=== PATIENT | female | born 1985 | race Caucasian/White ===

== ENCOUNTER 2016-09-02 04:44 | Emergency (ER) | payer SELFPAY ==
[~2016-09-02] VITALS: Ht 175.2 cm; Wt 81.6 kg
[~2016-09-02 04:44] MED LIST: BACTRIM DS 8001 TA1 PO; BACTRIM DS 8001 TAB PO; BENADRYL25 M2 PO; CIPROFLOXACIN500 MG PO; CLARITIN10 MG PO; CLINDAMYCIN HC300 MG PO; CYCLOBENZAPRINE10 MG PO; CYCLOBENZAPRINE5 MG PO; DOXYCYCLINE MO100 MG PO; FLEXERIL10 MG PO; HYDROCODONE BIT1 T11 PO; LIDEX0.05% T; MACROBID100 M1 PO; MACRODANTIN100 M1 PO; MEDROL DOSEPAK4 MG PO; MOTRIN800 MG PO; NORCO 325 MG-51 TAB PO; NORFLEX100 MG PO; OMEPRAZOLE40 MG PO; OVRAL-21 50 MCG1 TAB PO; PERCOCET 325 MG1 TA2 PO; PHENERGAN25 M3 PO; PREDNICOT20 MG PO; PYRIDIUM200 MG PO; TORADOL10 MG PO; TRAMADOL HCL50 MG PO; TYLENOL325 M2 PO; ULTRAM50 MG PO; VICODIN 5/500 505 MG PO; VICODIN 500 MG-1 TAB PO; VICODIN1 TAB PO; ZITHROMAX Z PA250 MG PO; ZOFRAN ODT4 MG SL; ZYRTEC10 MG PO; Zofran4 MG PO
[2016-09-02 04:49] VITALS: BP 145/80
[2016-09-02] MEDS ORDERED: NORCO 5-325 TA1 EACH PO (06:05)
== END 2016-09-02 06:16 | disposition home or self-care (01) ==
LOC: ED 04:44
DX: S52.121A Displaced fracture of head of right radius, initial encounter for closed fracture (principal); G43.909 Migraine, unspecified, not intractable, without status migrainosus; Z98.51 Tubal ligation status; Z98.890 Other specified postprocedural states; Z88.1 Allergy status to other antibiotic agents; Z88.0 Allergy status to penicillin; W19.XXXA Unspecified fall, initial encounter; Y93.89 Activity, other specified; Y92.009 Unspecified place in unspecified non-institutional (private) residence as the place of occurrence of the external cause; Y99.9 Unspecified external cause status

== ENCOUNTER 2016-10-17 14:50 | Emergency (ER) | payer MEDICAID ==
[~2016-10-17] VITALS: Ht 175.2 cm; Wt 81.6 kg
[~2016-10-17 14:50] MED LIST changes: +NORCO 5-325 TA1 EACH PO
[2016-10-17 15:10] VITALS: BP 151/80
[2016-10-17] MEDS ORDERED: CLINDAMYCIN HC300 MG PO (15:50)
== END 2016-10-17 15:55 | disposition home or self-care (01) ==
LOC: ED 14:50
DX: K08.89 Other specified disorders of teeth and supporting structures (principal); F17.200 Nicotine dependence, unspecified, uncomplicated; Z88.0 Allergy status to penicillin; Z88.1 Allergy status to other antibiotic agents; Z90.49 Acquired absence of other specified parts of digestive tract

== ENCOUNTER 2016-11-06 08:45 | Emergency (ER) | payer MEDICAID ==
[~2016-11-06] VITALS: Ht 172.7 cm; Wt 81.6 kg
[2016-11-06 08:53] VITALS: BP 140/92
== END 2016-11-06 10:19 | disposition home or self-care (01) ==
LOC: ED 08:45
DX: S93.692A Other sprain of left foot, initial encounter (principal); F17.200 Nicotine dependence, unspecified, uncomplicated; Z98.890 Other specified postprocedural states; G43.909 Migraine, unspecified, not intractable, without status migrainosus; Z98.51 Tubal ligation status; Z88.1 Allergy status to other antibiotic agents; Z88.0 Allergy status to penicillin; X58.XXXA Exposure to other specified factors, initial encounter; Y93.89 Activity, other specified; Y92.89 Other specified places as the place of occurrence of the external cause; Y99.9 Unspecified external cause status

== ENCOUNTER 2017-04-03 12:28 | Emergency (ER) | payer OTHER ==
[~2017-04-03] VITALS: Ht 175.2 cm; Wt 81.6 kg
[2017-04-03 12:38] VITALS: BP 136/85
== END 2017-04-03 14:38 | disposition home or self-care (01) ==
LOC: ED 12:28
DX: S16.1XXA Strain of muscle, fascia and tendon at neck level, initial encounter (principal); G43.909 Migraine, unspecified, not intractable, without status migrainosus; F17.200 Nicotine dependence, unspecified, uncomplicated; Z88.0 Allergy status to penicillin; Z88.1 Allergy status to other antibiotic agents; W00.0XXA Fall on same level due to ice and snow, initial encounter; Y93.89 Activity, other specified; Y92.89 Other specified places as the place of occurrence of the external cause; Y99.8 Other external cause status

== ENCOUNTER 2017-08-07 00:31 | Emergency (ER) | payer OTHER ==
[~2017-08-07] VITALS: Ht 175.2 cm; Wt 84.1 kg
[2017-08-07] MEDS ORDERED: MEDROL DOSEPAK4 MG PO (00:44)
[2017-08-07] MEDS ORDERED: SEPTDS PO (00:44)
[2017-08-07] MEDS ORDERED: ZYRTEC10 MG PO (00:44)
== END 2017-08-07 03:06 | disposition home or self-care (01) ==
LOC: ED 00:31
DX: S50.362A Insect bite (nonvenomous) of left elbow, initial encounter (principal); F10.129 Alcohol abuse with intoxication, unspecified; Z88.0 Allergy status to penicillin; Z88.1 Allergy status to other antibiotic agents; W57.XXXA Bitten or stung by nonvenomous insect and other nonvenomous arthropods, initial encounter; Y93.89 Activity, other specified; Y92.89 Other specified places as the place of occurrence of the external cause; Y99.8 Other external cause status

== ENCOUNTER 2017-10-18 19:24 | Emergency (ER) | payer OTHER ==
[~2017-10-18] VITALS: Ht 175.2 cm; Wt 85.3 kg
[~2017-10-18 19:24] MED LIST changes: +SEPTDS PO
[2017-10-18 19:29] VITALS: BP 136/77
== END 2017-10-18 20:39 | disposition home or self-care (01) ==
LOC: ED 19:24
DX: S50.01XA Contusion of right elbow, initial encounter (principal); Z98.51 Tubal ligation status; Z88.0 Allergy status to penicillin; Z88.1 Allergy status to other antibiotic agents; W22.8XXA Striking against or struck by other objects, initial encounter; Y93.89 Activity, other specified; Y92.69 Other specified industrial and construction area as the place of occurrence of the external cause; Y99.9 Unspecified external cause status

== ENCOUNTER 2018-02-13 23:03 | Emergency (ER) | payer OTHER ==
[~2018-02-13] VITALS: Ht 175.2 cm; Wt 76.2 kg
--- NOTE | ~2018-02-13 | EKG ---
[place], [place] ELECTROCARDIOGRAM REPORT NAME: MARYAM CROSS UNIT #: [id number] ROOM: DOCTOR: EPIPHANY DRAFT REPORT BIRTHDATE: [birth year] [facility] Test Date: 2018-02-13 Test Time: 23:25:42 Pat Name: MARYAM CROSS Department: Room: Gender: F [employer]: : 1985 Requested By: NATALIA PISANO DNP Order Number: [id number] Reading MD: Jairon Tran MD Measurements Intervals [place] Rate: 87 P: 40 MI: 173 QRS: 16 QRSD: 116 T: 24 QT: 360 QTc: 433 Interpretive Statements Sinus rhythm Nonspecific intraventricular conduction delay Electronically Signed On 02-15-2018 14:20:10 PST by Jairon Tran MD CM:EKGRPT:ELECTROCARDIOGRAM REPORT [id number] NATALIA PISANO [facility] NATALIA PISANO DNP
[2018-02-13 23:58] LABS: BASO # 0.1 10*3/uL (0.0-0.1); BASO % 0.8 % (0.0-1.0); EOS # 0.2 10*3/uL (0.0-0.4); EOS % 2.8 % (1.0-4.0); HEMATOCRIT 39.6 % (37.0-47.0); HEMOGLOBIN 13.2 g/dl (12.0-16.0); LYMPH # 3.5 10*3/uL (1.3-4.4); LYMPH % 48.3 % (27.0-41.0); MEAN CORPUSCULAR HGB 29.7 pg (27.0-31.0); MEAN CORPUSCULAR HGB CONC 33.3 g/dl (33.0-37.0); MEAN PLATELET VOLUME 11.3 fl (9.6-12.3); MONO # 0.5 10*3/uL (0.1-1.0); MONO % 7.5 % (3.0-9.0); NEUT # 2.9 10*3/uL (2.3-7.9); NEUT % 40.3 % (47.0-73.0); PLATELET COUNT AUTOMATED 236 10*3/uL (130-400); RED BLOOD COUNT 4.45 10*6/uL (4.10-5.10); RED CELL DISTRI WIDTH 12.7 % (0-14.5); WHITE BLOOD COUNT 7.2 10*3/uL (4.8-10.8)
[2018-02-14 00:08] LABS: ACT PARTIAL THROMBO TIME 23.1 SECONDS (20.8-31.5)
[2018-02-14 00:15] LABS: ALBUMIN 3.8 gm/dl (3.1-4.5); ALKALINE PHOSPHATASE 114 U/L (45-117); BUN 6 mg/dl (7-24); CHLORIDE 109 mmol/L (98-107); CREATININE 0.66 mg/dL (0.55-1.02); LIPASE 343 U/L (73-393); POTASSIUM 3.6 mmol/L (3.5-5.1); SGOT/AST 32 IU/L (3-35); SGPT/ALT 38 U/L (12-78); SODIUM 138 mmol/L (136-145); TOTAL PROTEIN 7.8 gm/dL (6.4-8.2)
[2018-02-14 00:20] LABS: TROPONIN I < 0.015 ng/ml (<0.045)
[2018-02-14] MEDS ORDERED: ONE DAILY WITH1 EACH PO (02:38)
[2018-02-14 02:57] VITALS: BP 148/90
== END 2018-02-14 03:02 | disposition home or self-care (01) ==
LOC: ED 23:03
PROVIDERS: Nurse Practitioner Family
DX: F10.129 Alcohol abuse with intoxication, unspecified (principal); R10.12 Left upper quadrant pain; R10.13 Epigastric pain; G43.909 Migraine, unspecified, not intractable, without status migrainosus; Z88.1 Allergy status to other antibiotic agents; Z88.0 Allergy status to penicillin; Z90.49 Acquired absence of other specified parts of digestive tract

== ENCOUNTER 2018-02-28 12:56 | Emergency (ER) | payer OTHER ==
[~2018-02-28] VITALS: Ht 175.2 cm; Wt 77.1 kg
[~2018-02-28 12:56] MED LIST changes: +ONE DAILY WITH1 EACH PO
[2018-02-28 12:57] VITALS: BP 122/71
[2018-02-28] MEDS ORDERED: POLYTRIM 1000010 M1 OPH (13:50)
[2018-02-28] MEDS ORDERED: NAPROSYN500 MG PO (13:51)
== END 2018-02-28 14:17 | disposition home or self-care (01) ==
LOC: ED 12:56
DX: S05.31XA Ocular laceration without prolapse or loss of intraocular tissue, right eye, initial encounter (principal); G43.909 Migraine, unspecified, not intractable, without status migrainosus; Z88.0 Allergy status to penicillin; Z88.1 Allergy status to other antibiotic agents; Z79.899 Other long term (current) drug therapy; W55.03XA Scratched by cat, initial encounter; Y93.89 Activity, other specified; Y92.89 Other specified places as the place of occurrence of the external cause; Y99.8 Other external cause status

== ENCOUNTER 2018-04-23 15:22 | Emergency (ER) | payer OTHER ==
[~2018-04-23] VITALS: Ht 175.2 cm; Wt 73.9 kg
[~2018-04-23 15:22] MED LIST changes: +NAPROSYN500 MG PO; +POLYTRIM 1000010 M1 OPH
[2018-04-23 16:51] LABS: BASO % 0.5 % (0.0-1.0); EOS # 0.1 10*3/uL (0.0-0.4); EOS % 1.5 % (1.0-4.0); HEMATOCRIT 41.7 % (37.0-47.0); HEMOGLOBIN 13.8 g/dl (12.0-16.0); LYMPH # 1.7 10*3/uL (1.3-4.4); LYMPH % 23.2 % (27.0-41.0); MEAN CELL VOLUME 91.9 fl (81.0-99.0); MEAN CORPUSCULAR HGB 30.4 pg (27.0-31.0); MEAN CORPUSCULAR HGB CONC 33.1 g/dl (33.0-37.0); MEAN PLATELET VOLUME 11.1 fl (9.6-12.3); MONO # 0.4 10*3/uL (0.1-1.0); MONO % 5.3 % (3.0-9.0); NEUT # 5.2 10*3/uL (2.3-7.9); NEUT % 69.2 % (47.0-73.0); PLATELET COUNT AUTOMATED 232 10*3/uL (130-400); RED BLOOD COUNT 4.54 10*6/uL (4.10-5.10); RED CELL DISTRI WIDTH 12.3 % (0-14.5); WHITE BLOOD COUNT 7.5 10*3/uL (4.8-10.8)
[2018-04-23 17:00] LABS: ACT PARTIAL THROMBO TIME 20.3 SECONDS (20.8-31.5)
[2018-04-23 17:05] LABS: ALBUMIN 3.6 gm/dl (3.1-4.5); ALKALINE PHOSPHATASE 90 U/L (45-117); BUN 8 mg/dl (7-24); CHLORIDE 114 mmol/L (98-107); CREATININE 0.75 mg/dL (0.55-1.02); POTASSIUM 4.3 mmol/L (3.5-5.1); SGOT/AST 28 IU/L (3-35); SGPT/ALT 34 U/L (12-78); SODIUM 146 mmol/L (136-145); TOTAL PROTEIN 7.2 gm/dL (6.4-8.2)
[2018-04-23 19:29] LABS: BILIRUBIN NEGATIVE (NEGATIVE); BLOOD NEGATIVE (NEGATIVE); CLARITY SL CLOUDY (CLEAR); COLOR YELLOW (YELLOW); GLUCOSE NEGATIVE (NEGATIVE); KETONE 1+ (NEGATIVE); LEUKO ESTERASE NEGATIVE (NEGATIVE); NITRITE NEGATIVE (NEGATIVE); SPECIFIC GRAVITY <= 1.005 (1.005-1.030); UROBILINOGEN 0.2 E.U./dl (0.2-1.0)
[2018-04-23 19:41] LABS: BACTERIA 2+; EPITHELIAL CELLS 25-30
[2018-04-23 20:01] VITALS: BP 115/64
[2018-09-19] MEDS ORDERED: MINIPRESS2 M1 PO (20:39)
== END 2018-04-23 20:30 | disposition home or self-care (01) ==
LOC: ED 15:22
PROVIDERS: Physician Assistant
DX: S13.9XXA Sprain of joints and ligaments of unspecified parts of neck, initial encounter (principal); R10.9 Unspecified abdominal pain; R55 Syncope and collapse; F17.200 Nicotine dependence, unspecified, uncomplicated; Z88.1 Allergy status to other antibiotic agents; Z88.0 Allergy status to penicillin; Z79.899 Other long term (current) drug therapy; V89.2XXA Person injured in unspecified motor-vehicle accident, traffic, initial encounter; Y93.I9 Activity, other involving external motion; Y92.488 Other paved roadways as the place of occurrence of the external cause; Y99.8 Other external cause status

== ENCOUNTER 2018-07-14 12:42 | Emergency (ER) | payer OTHER ==
[~2018-07-14] VITALS: Ht 175.2 cm; Wt 77.1 kg
[2018-07-14 12:43] VITALS: BP 115/70
[2018-07-14] MEDS ORDERED: MEDROL DOSEPAK4 MG PO (14:55)
[2018-07-14] MEDS ORDERED: ROBAXIN500 M1 PO (14:55)
[2018-09-19] MEDS ORDERED: MINIPRESS2 M1 PO (20:39)
== END 2018-07-14 14:58 | disposition home or self-care (01) ==
LOC: ED 12:42
DX: S70.01XA Contusion of right hip, initial encounter (principal); Z88.1 Allergy status to other antibiotic agents; Z88.0 Allergy status to penicillin; Z79.899 Other long term (current) drug therapy; X50.0XXA Overexertion from strenuous movement or load, initial encounter; Y93.89 Activity, other specified; Y92.098 Other place in other non-institutional residence as the place of occurrence of the external cause; Y99.8 Other external cause status

== ENCOUNTER → 2018-08-05 | Outpatient (CLI) | payer OTHER ==
[~2018-08-05] MED LIST changes: +MINIPRESS2 M1 PO; +Motrin,Rufen800 MG PO; +ROBAXIN500 M1 PO
== END | disposition home or self-care (01) ==
LOC: US 09:45
DX: N92.0 Excessive and frequent menstruation with regular cycle (principal); N64.52 Nipple discharge

== ENCOUNTER 2018-08-12 08:27 | Emergency (ER) | payer OTHER ==
[~2018-08-12] VITALS: Ht 175.2 cm; Wt 77.1 kg
[~2018-08-12 08:27] MED LIST changes: -MINIPRESS2 M1 PO; -Motrin,Rufen800 MG PO
[2018-08-12 08:31] VITALS: BP 100/65
[2018-08-12] MEDS ORDERED: Motrin,Rufen800 MG PO (09:57)
[2018-09-19] MEDS ORDERED: MINIPRESS2 M1 PO (20:39)
== END 2018-08-12 10:10 | disposition home or self-care (01) ==
LOC: ED 08:27
DX: S39.012A Strain of muscle, fascia and tendon of lower back, initial encounter (principal); G43.909 Migraine, unspecified, not intractable, without status migrainosus; Z88.0 Allergy status to penicillin; Z88.1 Allergy status to other antibiotic agents; W17.2XXA Fall into hole, initial encounter; Y93.89 Activity, other specified; Y92.89 Other specified places as the place of occurrence of the external cause; Y99.8 Other external cause status

== ENCOUNTER 2018-11-24 07:51 | Emergency (ER) | payer OTHER ==
[~2018-11-24] VITALS: Ht 170.1 cm; Wt 77.1 kg
[~2018-11-24 07:51] MED LIST changes: +MINIPRESS2 M1 PO; +Motrin,Rufen800 MG PO
[2018-11-24 07:53] VITALS: BP 111/62
[2018-11-24] MEDS ORDERED: CYCLOBENZAPRINE10 MG PO (09:44)
[2018-11-24] MEDS ORDERED: Motrin,Rufen800 MG PO (09:44)
== END 2018-11-24 10:06 | disposition home or self-care (01) ==
LOC: ED 07:51
DX: S79.911A Unspecified injury of right hip, initial encounter (principal); S89.91XA Unspecified injury of right lower leg, initial encounter; J02.9 Acute pharyngitis, unspecified; F17.200 Nicotine dependence, unspecified, uncomplicated; Z88.1 Allergy status to other antibiotic agents; Z88.0 Allergy status to penicillin; Z90.49 Acquired absence of other specified parts of digestive tract; W18.09XA Striking against other object with subsequent fall, initial encounter; Y93.89 Activity, other specified; Y92.098 Other place in other non-institutional residence as the place of occurrence of the external cause; Y99.8 Other external cause status

== ENCOUNTER 2018-12-09 15:50 | Emergency (ER) | payer OTHER ==
[~2018-12-09] VITALS: Ht 175.2 cm; Wt 76.2 kg
[2018-12-09 15:51] VITALS: BP 122/73
[2018-12-09] MEDS ORDERED: SEPTDS PO (17:03)
[2018-12-09] MEDS ORDERED: CEPHALEXIN500 M1 PO (17:03)
== END 2018-12-09 17:59 | disposition home or self-care (01) ==
LOC: ED 15:50
DX: L03.116 Cellulitis of left lower limb (principal); F17.200 Nicotine dependence, unspecified, uncomplicated; Z88.0 Allergy status to penicillin; Z88.1 Allergy status to other antibiotic agents; W22.8XXA Striking against or struck by other objects, initial encounter; Y93.89 Activity, other specified; Y92.89 Other specified places as the place of occurrence of the external cause; Y99.0 Civilian activity done for income or pay

== ENCOUNTER 2018-12-13 16:54 | Emergency (ER) | payer OTHER ==
[~2018-12-13] VITALS: Ht 175.2 cm; Wt 76.2 kg
[~2018-12-13 16:54] MED LIST changes: +CEPHALEXIN500 M1 PO
[2018-12-13 16:56] VITALS: BP 136/76
[2018-12-13] MEDS ORDERED: Bactroban Oint22 GM T (17:27)
== END 2018-12-13 18:10 | disposition home or self-care (01) ==
LOC: ED 16:54
DX: M79.605 Pain in left leg (principal); Z98.51 Tubal ligation status; Z98.890 Other specified postprocedural states; Z79.899 Other long term (current) drug therapy; Z88.1 Allergy status to other antibiotic agents; Z88.0 Allergy status to penicillin

== ENCOUNTER 2019-03-09 14:51 | Emergency (ER) | payer OTHER ==
[~2019-03-09] VITALS: Ht 175.2 cm; Wt 78.0 kg
[~2019-03-09 14:51] MED LIST changes: +Bactroban Oint22 GM T
[2019-03-09 14:53] VITALS: BP 129/79
[2019-03-09] MEDS ORDERED: IBU600 M1 PO (15:25)
== END 2019-03-09 15:35 | disposition home or self-care (01) ==
LOC: ED 14:51
DX: S76.312A Strain of muscle, fascia and tendon of the posterior muscle group at thigh level, left thigh, initial encounter (principal); Z88.1 Allergy status to other antibiotic agents; Z88.0 Allergy status to penicillin; Z79.2 Long term (current) use of antibiotics; Z90.49 Acquired absence of other specified parts of digestive tract; X50.0XXA Overexertion from strenuous movement or load, initial encounter; Y93.89 Activity, other specified; Y92.89 Other specified places as the place of occurrence of the external cause; Y99.8 Other external cause status

== ENCOUNTER 2019-04-08 09:20 | Emergency (ER) | payer OTHER ==
[~2019-04-08] VITALS: Ht 175.2 cm; Wt 77.1 kg
[~2019-04-08 09:20] MED LIST changes: +IBU600 M1 PO
[2019-04-08 09:26] VITALS: BP 126/84
[2019-04-08] MEDS ORDERED: IBU800 MG PO (11:16)
== END 2019-04-08 11:19 | disposition home or self-care (01) ==
LOC: ED 09:20
DX: S30.0XXA Contusion of lower back and pelvis, initial encounter (principal); F17.200 Nicotine dependence, unspecified, uncomplicated; Z88.0 Allergy status to penicillin; Z88.1 Allergy status to other antibiotic agents; W10.8XXA Fall (on) (from) other stairs and steps, initial encounter; Y93.89 Activity, other specified; Y92.89 Other specified places as the place of occurrence of the external cause; Y99.8 Other external cause status

== ENCOUNTER 2019-05-03 14:37 | Emergency (ER) | payer SELFPAY ==
[~2019-05-03] VITALS: Ht 175.2 cm; Wt 77.1 kg
[~2019-05-03 14:37] MED LIST changes: +IBU800 MG PO
[2019-05-03 14:41] VITALS: BP 126/79
[2019-05-03] MEDS ORDERED: Motrin,Rufen800 MG PO (18:05)
== END 2019-05-03 18:06 | disposition home or self-care (01) ==
LOC: ED 14:37
DX: S86.911A Strain of unspecified muscle(s) and tendon(s) at lower leg level, right leg, initial encounter (principal); M25.521 Pain in right elbow; Z88.0 Allergy status to penicillin; Z88.8 Allergy status to other drugs, medicaments and biological substances; W19.XXXA Unspecified fall, initial encounter; Y93.72 Activity, wrestling; Y92.89 Other specified places as the place of occurrence of the external cause; Y99.8 Other external cause status

== ENCOUNTER 2019-05-25 08:30 | Emergency (ER) | payer OTHER ==
[~2019-05-25] VITALS: Ht 175.2 cm; Wt 77.1 kg
[2019-05-25] MEDS ORDERED: TYLENOL325 M1 PO (10:18)
[2019-05-25] MEDS ORDERED: Motrin,Rufen400 MG PO (10:18)
[2019-05-25 10:25] VITALS: BP 122/77
== END 2019-05-25 10:30 | disposition home or self-care (01) ==
LOC: ED 08:30
DX: S39.92XA Unspecified injury of lower back, initial encounter (principal); M25.551 Pain in right hip; M79.604 Pain in right leg; G43.909 Migraine, unspecified, not intractable, without status migrainosus; Z88.0 Allergy status to penicillin; Z88.1 Allergy status to other antibiotic agents; W10.8XXA Fall (on) (from) other stairs and steps, initial encounter; Y93.89 Activity, other specified; Y92.89 Other specified places as the place of occurrence of the external cause; Y99.8 Other external cause status

== ENCOUNTER 2019-09-07 13:54 | Emergency (ER) | payer OTHER ==
[~2019-09-07] VITALS: Ht 175.2 cm; Wt 77.1 kg
[~2019-09-07 13:54] MED LIST changes: +Motrin,Rufen400 MG PO; +TYLENOL325 M1 PO
[2019-09-07 14:02] VITALS: BP 138/86
== END 2019-09-07 16:18 | disposition home or self-care (01) ==
LOC: ED 13:54
DX: S92.534A Nondisplaced fracture of distal phalanx of right lesser toe(s), initial encounter for closed fracture (principal); Z88.1 Allergy status to other antibiotic agents; Z88.0 Allergy status to penicillin; W22.8XXA Striking against or struck by other objects, initial encounter; Y93.89 Activity, other specified; Y92.89 Other specified places as the place of occurrence of the external cause; Y99.8 Other external cause status

== ENCOUNTER 2019-09-16 12:26 | Emergency (ER) | payer OTHER ==
[~2019-09-16] VITALS: Ht 175.2 cm; Wt 77.1 kg
[2019-09-16 12:50] VITALS: BP 128/89
[2019-09-16] MEDS ORDERED: Motrin,Rufen800 MG PO (14:24)
== END 2019-09-16 14:41 | disposition home or self-care (01) ==
LOC: ED 12:26
DX: S39.012A Strain of muscle, fascia and tendon of lower back, initial encounter (principal); Z88.8 Allergy status to other drugs, medicaments and biological substances; Z88.0 Allergy status to penicillin; X50.0XXA Overexertion from strenuous movement or load, initial encounter; Y93.89 Activity, other specified; Y92.89 Other specified places as the place of occurrence of the external cause; Y99.8 Other external cause status

== ENCOUNTER 2019-11-04 10:38 | Emergency (ER) | payer OTHER ==
[~2019-11-04] VITALS: Ht 175.2 cm; Wt 77.1 kg
[2019-11-04 11:41] VITALS: BP 112/70
[2019-11-04] MEDS ORDERED: IBUPROFEN600 MG PO (13:49)
== END 2019-11-04 14:52 | disposition home or self-care (01) ==
LOC: ED 10:38
DX: S76.012A Strain of muscle, fascia and tendon of left hip, initial encounter (principal); Z88.1 Allergy status to other antibiotic agents; Z88.0 Allergy status to penicillin; X50.0XXA Overexertion from strenuous movement or load, initial encounter; Y93.89 Activity, other specified; Y92.89 Other specified places as the place of occurrence of the external cause; Y99.0 Civilian activity done for income or pay

== ENCOUNTER 2019-11-09 10:48 | Emergency (ER) | payer OTHER ==
[~2019-11-09] VITALS: Ht 175.3 cm; Wt 77.1 kg
[~2019-11-09 10:48] MED LIST changes: +IBUPROFEN600 MG PO
[2019-11-09 10:59] VITALS: BP 123/79
== END 2019-11-09 12:58 | disposition home or self-care (01) ==
LOC: ED 10:48
DX: M79.672 Pain in left foot (principal); F17.200 Nicotine dependence, unspecified, uncomplicated; Z88.0 Allergy status to penicillin; Z88.8 Allergy status to other drugs, medicaments and biological substances

== ENCOUNTER 2019-11-21 13:00 | Emergency (ER) | payer OTHER ==
[~2019-11-21] VITALS: Ht 175.2 cm; Wt 77.1 kg
[2019-11-21 13:06] VITALS: BP 128/85
[2019-11-21] MEDS ORDERED: IBUPROFEN600 MG PO (14:27)
== END 2019-11-21 14:28 | disposition home or self-care (01) ==
LOC: ED 13:00
DX: S46.911A Strain of unspecified muscle, fascia and tendon at shoulder and upper arm level, right arm, initial encounter (principal); Z88.0 Allergy status to penicillin; Z88.1 Allergy status to other antibiotic agents; W22.8XXA Striking against or struck by other objects, initial encounter; Y93.72 Activity, wrestling; Y92.89 Other specified places as the place of occurrence of the external cause; Y99.8 Other external cause status

== ENCOUNTER 2019-12-29 12:19 | Emergency (ER) | payer OTHER ==
[~2019-12-29] VITALS: Ht 175.2 cm; Wt 72.6 kg
[2019-12-29 12:40] VITALS: BP 122/71
== END 2019-12-29 14:31 | disposition home or self-care (01) ==
LOC: ED 12:19
DX: S60.011A Contusion of right thumb without damage to nail, initial encounter (principal); Z88.8 Allergy status to other drugs, medicaments and biological substances; Z88.0 Allergy status to penicillin; Z79.899 Other long term (current) drug therapy; X58.XXXA Exposure to other specified factors, initial encounter; Y93.89 Activity, other specified; Y92.89 Other specified places as the place of occurrence of the external cause; Y99.8 Other external cause status

== ENCOUNTER → 2020-02-28 | Outpatient (CLI) | payer OTHER | END | disposition home or self-care (01) | LOC: COVID19 12:32 | PROVIDERS: ATTEND Family Medicine | DX: Z20.828 Contact with and (suspected) exposure to other viral communicable diseases (principal) ==

== ENCOUNTER 2020-03-29 09:36 | Emergency (ER) | payer OTHER ==
[~2020-03-29] VITALS: Ht 175.2 cm; Wt 77.1 kg
[2020-03-29 09:41] VITALS: BP 123/48
[2020-03-29] MEDS ORDERED: TYLENOL325 M1 PO (10:35)
[2020-03-29] MEDS ORDERED: Motrin,Rufen400 MG PO (10:35)
== END 2020-03-29 10:37 | disposition home or self-care (01) ==
LOC: ED 09:36
DX: S46.911A Strain of unspecified muscle, fascia and tendon at shoulder and upper arm level, right arm, initial encounter (principal); G43.909 Migraine, unspecified, not intractable, without status migrainosus; Z88.1 Allergy status to other antibiotic agents; Z88.0 Allergy status to penicillin; X50.1XXA Overexertion from prolonged static or awkward postures, initial encounter; Y93.89 Activity, other specified; Y92.89 Other specified places as the place of occurrence of the external cause; Y99.8 Other external cause status

== ENCOUNTER → 2020-03-30 | Outpatient (CLI) | payer OTHER | END | disposition home or self-care (01) | LOC: COVID19 12:38 | PROVIDERS: ATTEND Family Medicine | DX: Z20.822 Contact with and (suspected) exposure to COVID-19 (principal) ==

== ENCOUNTER → 2020-05-21 | Outpatient (CLI) | payer OTHER ==
[~2020-05-21] MED LIST changes: +PREDNISONE20 M1 PO; +ROBAXIN-750750 MG PO
== END | disposition home or self-care (01) ==
LOC: COVID19 10:58
PROVIDERS: ATTEND Physical Therapist
DX: Z20.822 Contact with and (suspected) exposure to COVID-19 (principal)

== ENCOUNTER 2020-05-30 13:03 | Emergency (ER) | payer OTHER ==
[~2020-05-30] VITALS: Wt 79.4 kg
[~2020-05-30 13:03] MED LIST changes: -PREDNISONE20 M1 PO; -ROBAXIN-750750 MG PO
[2020-05-30 13:10] VITALS: BP 145/79
== END 2020-05-30 13:45 | disposition home or self-care (01) ==
LOC: ED 13:03
DX: S60.551A Superficial foreign body of right hand, initial encounter (principal); G43.909 Migraine, unspecified, not intractable, without status migrainosus; Z88.0 Allergy status to penicillin; Z79.899 Other long term (current) drug therapy; Z98.51 Tubal ligation status; Z90.49 Acquired absence of other specified parts of digestive tract; Z88.1 Allergy status to other antibiotic agents; W22.8XXA Striking against or struck by other objects, initial encounter; Y93.89 Activity, other specified; Y92.89 Other specified places as the place of occurrence of the external cause; Y99.9 Unspecified external cause status

== ENCOUNTER → 2020-05-31 | Outpatient (CLI) | payer OTHER ==
[~2020-05-31] MED LIST changes: +PREDNISONE20 M1 PO; +ROBAXIN-750750 MG PO
== END | disposition home or self-care (01) ==
LOC: CARD 05-23 08:30
PROVIDERS: ATTEND Physical Therapist
DX: I49.9 Cardiac arrhythmia, unspecified (principal); Z87.898 Personal history of other specified conditions; Z79.899 Other long term (current) drug therapy

== ENCOUNTER 2020-06-25 11:23 | Emergency (ER) | payer OTHER ==
[~2020-06-25] VITALS: Wt 79.4 kg
[~2020-06-25 11:23] MED LIST changes: -PREDNISONE20 M1 PO; -ROBAXIN-750750 MG PO
[2020-06-25 11:31] VITALS: BP 149/85
[2020-06-25] MEDS ORDERED: ROBAXIN-750750 MG PO (12:14)
[2020-06-25] MEDS ORDERED: PREDNISONE20 M1 PO (12:14)
== END 2020-06-25 12:29 | disposition home or self-care (01) ==
LOC: ED 11:23
DX: M62.830 Muscle spasm of back (principal); M54.5 Low back pain; Z88.0 Allergy status to penicillin; Z88.1 Allergy status to other antibiotic agents; Z79.899 Other long term (current) drug therapy; Z98.51 Tubal ligation status; Z90.49 Acquired absence of other specified parts of digestive tract

== ENCOUNTER 2021-02-26 07:29 | Emergency (ER) | payer OTHER ==
[~2021-02-26] VITALS: Wt 77.1 kg
[~2021-02-26 07:29] MED LIST changes: +PREDNISONE20 M1 PO; +ROBAXIN-750750 MG PO
[2021-02-26 07:49] VITALS: BP 126/77
[2021-02-26] MEDS ORDERED: CYCLOBENZAPRINE5 M3 PO (09:04)
== END 2021-02-26 09:33 | disposition home or self-care (01) ==
LOC: ED 07:29
DX: M54.50 Low back pain, unspecified (principal); Z88.1 Allergy status to other antibiotic agents; Z88.0 Allergy status to penicillin; F17.200 Nicotine dependence, unspecified, uncomplicated

== ENCOUNTER 2021-04-14 13:58 | Emergency (ER) | payer OTHER ==
[~2021-04-14] VITALS: Ht 175.2 cm; Wt 87.5 kg
[~2021-04-14 13:58] MED LIST changes: +CYCLOBENZAPRINE5 M3 PO
[2021-04-14 14:18] VITALS: BP 133/72
[2021-04-14] MEDS ORDERED: Motrin,Rufen800 MG PO (16:11)
== END 2021-04-14 16:42 | disposition home or self-care (01) ==
LOC: ED 13:58
DX: S22.31XA Fracture of one rib, right side, initial encounter for closed fracture (principal); Z88.0 Allergy status to penicillin; Z88.1 Allergy status to other antibiotic agents; Z98.51 Tubal ligation status; Z98.890 Other specified postprocedural states; W00.0XXA Fall on same level due to ice and snow, initial encounter; Y93.89 Activity, other specified; Y92.89 Other specified places as the place of occurrence of the external cause; Y99.8 Other external cause status

== ENCOUNTER → 2021-10-18 | Outpatient (CLI) | payer OTHER ==
[~2021-10-18] MED LIST changes: +OMEPRAZOLE20 M3 PO
[2021-10-18 11:27] LABS: BILIRUBIN Negative (Negative); BLOOD Negative (Negative); CLARITY Clear (Clear); COLOR Yellow (Yellow); GLUCOSE Negative (Negative); KETONE Negative (Negative); LEUKO ESTERASE Negative (Negative); NITRITE Negative (Negative); PH 5.5 (4.5-8.0); SPECIFIC GRAVITY 1.015 (1.001-1.030); UROBILINOGEN 0.2 E.U./dl (0.0-1.0)
[2021-10-18 13:32] LABS: RBC 0-2 rbc/hpf (0-2)
== END | disposition home or self-care (01) ==
LOC: LAB 11:00
PROVIDERS: ATTEND Family Medicine
DX: R35.0 Frequency of micturition (principal)

== ENCOUNTER 2021-10-22 13:41 | Emergency (ER) | payer OTHER ==
[~2021-10-22] VITALS: Ht 175.2 cm; Wt 77.1 kg
[~2021-10-22 13:41] MED LIST changes: -OMEPRAZOLE20 M3 PO
[2021-10-22 13:47] VITALS: BP 148/102
[2021-10-22] MEDS ORDERED: OMEPRAZOLE20 M3 PO (13:48)
== END 2021-10-22 17:21 | disposition home or self-care (01) ==
LOC: ED 13:41
DX: M25.552 Pain in left hip (principal); Z88.0 Allergy status to penicillin; Z88.1 Allergy status to other antibiotic agents; Z79.899 Other long term (current) drug therapy; Z98.51 Tubal ligation status; Z90.49 Acquired absence of other specified parts of digestive tract

== ENCOUNTER 2022-01-21 06:33 | Emergency (ER) | payer OTHER ==
[~2022-01-21] VITALS: Ht 175.2 cm; Wt 81.6 kg
[~2022-01-21 06:33] MED LIST changes: +OMEPRAZOLE20 M3 PO
[2022-01-21 06:39] VITALS: BP 127/74
[2022-01-21] MEDS ORDERED: Motrin,Rufen400 MG PO (07:13)
[2022-01-21] MEDS ORDERED: VOLTAREN ARTHRI20 GM T (07:13)
[2022-01-21] MEDS ORDERED: TYLENOL325 M1 PO (07:13)
== END 2022-01-21 07:20 | disposition home or self-care (01) ==
LOC: ED 06:33
DX: S50.02XA Contusion of left elbow, initial encounter (principal); Z88.0 Allergy status to penicillin; Z88.1 Allergy status to other antibiotic agents; Z79.899 Other long term (current) drug therapy; Z98.51 Tubal ligation status; Z90.49 Acquired absence of other specified parts of digestive tract; W22.03XA Walked into furniture, initial encounter; Y93.89 Activity, other specified; Y92.89 Other specified places as the place of occurrence of the external cause; Y99.8 Other external cause status

== ENCOUNTER → 2022-04-04 | Outpatient (CLI) | payer OTHER ==
[~2022-04-04] MED LIST changes: +VOLTAREN ARTHRI20 GM T
[2022-04-04 10:13] LABS: BASO # 0.1 10*3/uL (0.0-0.1); BASO % 1.4 % (0.0-1.0); EOS # 0.2 10*3/uL (0.0-0.4); EOS % 2.9 % (1.0-4.0); HEMATOCRIT 34.1 % (37.0-47.0); LYMPH # 2.1 10*3/uL (1.3-4.4); LYMPH % 33.3 % (27.0-41.0); MEAN CELL VOLUME 74.8 fl (81.0-99.0); MEAN CORPUSCULAR HGB 21.5 pg (27.0-31.0); MEAN CORPUSCULAR HGB CONC 28.7 g/dl (33.0-37.0); MEAN PLATELET VOLUME 10.5 fl (9.6-12.3); MONO # 0.5 10*3/uL (0.1-1.0); MONO % 7.7 % (3.0-9.0); NEUT # 3.4 10*3/uL (2.3-7.9); NEUT % 54.4 % (47.0-73.0); PLATELET COUNT AUTOMATED 307 10*3/uL (130-400); RED BLOOD COUNT 4.56 10*6/uL (4.10-5.10); RED CELL DISTRI WIDTH 17.2 % (0-14.5); WHITE BLOOD COUNT 6.3 10*3/uL (4.8-10.8)
[2022-04-04 10:30] LABS: ALKALINE PHOSPHATASE 108 U/L (46-116); BUN 10 mg/dl (9-23); CHLORIDE 107 mmol/L (98-107); SGPT/ALT 21 U/L (10-49); THYROID STIM HORMONE (HS) 3.769 uIU/ml (0.550-4.780); TOTAL PROTEIN 7.5 gm/dL (6.0-8.0)
[2022-04-05 05:06] LABS: H PYLORI IGG AB 0.16 (0.00-0.79)
[2022-04-07 13:06] LABS: H.PYLORI AB IGM 11.8 units (0.0-8.9); H.PYLORI IgA 11.8 units (0.0-8.9)
== END | disposition home or self-care (01) ==
LOC: LAB 09:45
PROVIDERS: ATTEND Student in an Organized Health Care Education/Training Program
DX: K59.00 Constipation, unspecified (principal); R25.2 Cramp and spasm

== ENCOUNTER → 2022-04-14 | Outpatient (CLI) | payer OTHER | END | disposition home or self-care (01) | LOC: LAB 14:01 | PROVIDERS: ATTEND Student in an Organized Health Care Education/Training Program | DX: D64.9 Anemia, unspecified (principal) ==

== ENCOUNTER → 2022-04-15 | Outpatient (CLI) | payer OTHER | END | disposition home or self-care (01) | LOC: LAB 11:46 | PROVIDERS: ATTEND Student in an Organized Health Care Education/Training Program | DX: D64.9 Anemia, unspecified (principal) ==

== ENCOUNTER → 2022-04-16 | Outpatient (CLI) | payer OTHER | END | disposition home or self-care (01) | LOC: MRI 01:29 | PROVIDERS: ATTEND Family Medicine | DX: R20.2 Paresthesia of skin (principal); H54.7 Unspecified visual loss; R51.9 Headache, unspecified ==

== ENCOUNTER 2022-07-24 12:54 | Emergency (ER) | payer OTHER ==
[~2022-07-24] VITALS: Ht 175.2 cm; Wt 81.6 kg
[2022-07-24 13:02] VITALS: BP 145/84
[2022-07-24 13:43] LABS: BASO # 0.1 10*3/uL (0.0-0.1); BASO % 0.9 % (0.0-1.0); EOS # 0.1 10*3/uL (0.0-0.4); EOS % 1.7 % (1.0-4.0); HEMATOCRIT 40.4 % (37.0-47.0); LYMPH # 2.7 10*3/uL (1.3-4.4); LYMPH % 41.6 % (27.0-41.0); MEAN CELL VOLUME 93.1 fl (81.0-99.0); MEAN CORPUSCULAR HGB 29.7 pg (27.0-31.0); MEAN CORPUSCULAR HGB CONC 31.9 g/dl (33.0-37.0); MEAN PLATELET VOLUME 10.5 fl (9.6-12.3); MONO # 0.6 10*3/uL (0.1-1.0); MONO % 8.9 % (3.0-9.0); NEUT % 46.6 % (47.0-73.0); PLATELET COUNT AUTOMATED 266 10*3/uL (130-400); RED BLOOD COUNT 4.34 10*6/uL (4.10-5.10); RED CELL DISTRI WIDTH 13.8 % (0-14.5); WHITE BLOOD COUNT 6.5 10*3/uL (4.8-10.8)
[2022-07-24 13:54] LABS: BILIRUBIN Negative (Negative); BLOOD 1+ (Negative); CLARITY Clear (Clear); COLOR Yellow (Yellow); GLUCOSE Negative (Negative); KETONE Trace (Negative); LEUKO ESTERASE Negative (Negative); NITRITE Negative (Negative); PH 5.5 (4.5-8.0); UROBILINOGEN 0.2 E.U./dl (0.0-1.0)
[2022-07-24 14:03] LABS: ALKALINE PHOSPHATASE 97 U/L (46-116); BUN 10 mg/dl (9-23); CHLORIDE 106 mmol/L (98-107); POTASSIUM 4.1 mmol/L (3.4-5.1); SGPT/ALT 27 U/L (10-49); THYROID STIM HORMONE (HS) 5.264 uIU/ml (0.550-4.780); TOTAL PROTEIN 7.1 gm/dL (6.0-8.0)
[2022-07-24 14:11] LABS: EPITHELIAL CELLS 0-2; MUCOUS 1+
[2022-07-24 14:12] LABS: BACTERIA TRACE; RBC 0-2 rbc/hpf (0-2)
== END 2022-07-24 14:54 | disposition home or self-care (01) ==
LOC: ED 12:54
PROVIDERS: Student in an Organized Health Care Education/Training Program
DX: N93.9 Abnormal uterine and vaginal bleeding, unspecified (principal); Z98.51 Tubal ligation status; Z90.49 Acquired absence of other specified parts of digestive tract; Z98.890 Other specified postprocedural states; Z79.899 Other long term (current) drug therapy; Z88.0 Allergy status to penicillin; Z88.1 Allergy status to other antibiotic agents

== ENCOUNTER 2022-07-30 14:15 | Emergency (ER) | payer OTHER ==
[~2022-07-30] VITALS: Ht 175.2 cm; Wt 81.6 kg
[2022-07-30 14:41] VITALS: BP 147/92
[2022-07-30 15:17] LABS: BILIRUBIN Negative (Negative); BLOOD 1+ (Negative); CLARITY Cloudy (Clear); COLOR Yellow (Yellow); GLUCOSE Negative (Negative); KETONE Negative (Negative); LEUKO ESTERASE 1+ (Negative); NITRITE Negative (Negative); UROBILINOGEN 0.2 E.U./dl (0.0-1.0)
[2022-07-30 15:22] LABS: BASO % 0.6 % (0.0-1.0); EOS % 0.6 % (1.0-4.0); HEMATOCRIT 41.5 % (37.0-47.0); LYMPH % 14.4 % (27.0-41.0); MEAN CELL VOLUME 92.6 fl (81.0-99.0); MEAN CORPUSCULAR HGB CONC 33.5 g/dl (33.0-37.0); MEAN PLATELET VOLUME 10.3 fl (9.6-12.3); MONO # 0.5 10*3/uL (0.1-1.0); MONO % 7.4 % (3.0-9.0); NEUT # 5.5 10*3/uL (2.3-7.9); NEUT % 76.7 % (47.0-73.0); PLATELET COUNT AUTOMATED 212 10*3/uL (130-400); RED BLOOD COUNT 4.48 10*6/uL (4.10-5.10); RED CELL DISTRI WIDTH 13.1 % (0-14.5); WHITE BLOOD COUNT 7.2 10*3/uL (4.8-10.8)
[2022-07-30] MEDS ORDERED: FEROSUL325 M1 PO (15:35)
[2022-07-30] MEDS ORDERED: OMEPRAZOLE MAGN20 MG PO (15:35)
[2022-07-30 15:37] LABS: BACTERIA 1+; EPITHELIAL CELLS 16-20
[2022-07-30 15:45] LABS: ALKALINE PHOSPHATASE 105 U/L (46-116); BUN 7 mg/dl (9-23); CHLORIDE 109 mmol/L (98-107); POTASSIUM 4.1 mmol/L (3.4-5.1); SGPT/ALT 27 U/L (10-49); TOTAL PROTEIN 7.3 gm/dL (6.0-8.0)
[2022-07-30] MEDS ORDERED: TRAMADOL HCL50 MG PO ×2 (16:53→16:56)
== END 2022-07-30 18:52 | disposition home or self-care (01) ==
LOC: ED 14:15
PROVIDERS: Emergency Medicine
DX: R10.9 Unspecified abdominal pain (principal); Z88.0 Allergy status to penicillin; Z88.1 Allergy status to other antibiotic agents; Z98.51 Tubal ligation status; Z98.890 Other specified postprocedural states

== ENCOUNTER → 2022-07-31 | Outpatient (CLI) | payer OTHER ==
[~2022-07-31] MED LIST changes: +FEROSUL325 M1 PO; +OMEPRAZOLE MAGN20 MG PO
[2022-07-31 17:53] LABS: LIPASE 32 U/L (12-53)
== END | disposition home or self-care (01) ==
LOC: LAB 09:32
PROVIDERS: Student in an Organized Health Care Education/Training Program; ATTEND Nurse Practitioner Women's Health
DX: R19.7 Diarrhea, unspecified (principal); R10.9 Unspecified abdominal pain

== ENCOUNTER → 2022-08-09 | Outpatient (CLI) | payer OTHER | END | disposition home or self-care (01) | LOC: CT 08-05 15:00 | PROVIDERS: ATTEND Student in an Organized Health Care Education/Training Program | DX: K63.89 Other specified diseases of intestine (principal) ==

== ENCOUNTER 2023-05-16 10:05 | Emergency (ER) | payer OTHER ==
[~2023-05-16] VITALS: Ht 175.2 cm; Wt 79.4 kg
[2023-05-16 10:18] VITALS: BP 145/80
[2023-05-16] MEDS ORDERED: Ondansetron Hydrochloride 4 MG/2 ML VIAL IV ONE (10:35)
[2023-05-16] MEDS ORDERED: SODIUM CHLORIDE 0.9% 1,000 ML IV ONE (10:35)
[2023-05-16 10:49] LABS: HEMATOCRIT 39.3 % (37.0-47.0); MEAN CELL VOLUME 95.4 fl (81.0-99.0); MEAN CORPUSCULAR HGB 31.1 pg (27.0-31.0); MEAN CORPUSCULAR HGB CONC 32.6 g/dl (33.0-37.0); PLATELET COUNT AUTOMATED 269 10*3/uL (130-400); RED BLOOD COUNT 4.12 10*6/uL (4.10-5.10); RED CELL DISTRI WIDTH 11.8 % (0-14.5); WHITE BLOOD COUNT 3.8 10*3/uL (4.8-10.8)
[2023-05-16 10:51] LABS: MANUAL DIFF REFLEX YES
[2023-05-16 11:12] LABS: ALKALINE PHOSPHATASE 96 U/L (46-116); BUN 6 mg/dl (9-23); CHLORIDE 113 mmol/L (98-107); LIPASE 41 U/L (12-53); POTASSIUM 3.9 mmol/L (3.4-5.1); SGPT/ALT 20 U/L (5-49); TOTAL PROTEIN 6.7 gm/dL (6.0-8.0)
[2023-05-16 11:13] LABS: ATYPICAL LYMPHS 3 % (0-0); BASOPHILS 1 % (0-1); PLATELET SUFFICIENCY NORMAL (NORMAL); TOTAL CELLS COUNTED 100 #CELLS
[2023-05-16] MEDS ORDERED: ONDANSETRON4 MG SL (12:48)
== END 2023-05-16 12:55 | disposition home or self-care (01) ==
LOC: ED 10:05
PROVIDERS: Internal Medicine
DX: R11.2 Nausea with vomiting, unspecified (principal); M79.675 Pain in left toe(s); B34.9 Viral infection, unspecified; Z88.0 Allergy status to penicillin; Z88.1 Allergy status to other antibiotic agents; Z98.51 Tubal ligation status; Z90.49 Acquired absence of other specified parts of digestive tract; Z98.890 Other specified postprocedural states

== ENCOUNTER 2023-10-26 09:32 | Emergency (ER) | payer OTHER ==
[~2023-10-26] VITALS: Ht 175.2 cm; Wt 86.2 kg
[~2023-10-26 09:32] MED LIST changes: +ONDANSETRON4 MG SL
[2023-10-26 09:51] VITALS: BP 136/92
[2023-10-26] MEDS ORDERED: Ketorolac Tromethamine 30 MG/ML VIAL IM ONE (10:10)
[2023-10-26] MEDS ORDERED: TRAMADOL HCL50 MG PO (11:37)
== END 2023-10-26 12:00 | disposition home or self-care (01) ==
LOC: ED 09:32
DX: S82.832A Other fracture of upper and lower end of left fibula, initial encounter for closed fracture (principal); Z88.0 Allergy status to penicillin; Z88.1 Allergy status to other antibiotic agents; Z98.51 Tubal ligation status; Z90.49 Acquired absence of other specified parts of digestive tract; Z98.890 Other specified postprocedural states; X58.XXXA Exposure to other specified factors, initial encounter; Y93.89 Activity, other specified; Y92.89 Other specified places as the place of occurrence of the external cause; Y99.8 Other external cause status

== ENCOUNTER 2023-12-06 10:04 | Emergency (ER) | payer OTHER ==
[~2023-12-06] VITALS: Ht 175.2 cm; Wt 81.6 kg
[2023-12-06 10:11] VITALS: BP 151/88
[2023-12-06] MEDS ORDERED: CIPROFLOXACIN H10 ML OPH (10:28)
[2023-12-06] MEDS ORDERED: NICODERM CQ1 EAC2 TD (10:29)
== END 2023-12-06 10:45 | disposition home or self-care (01) ==
LOC: ED 10:04
DX: S05.01XA Injury of conjunctiva and corneal abrasion without foreign body, right eye, initial encounter (principal); H10.9 Unspecified conjunctivitis; F17.290 Nicotine dependence, other tobacco product, uncomplicated; Z88.1 Allergy status to other antibiotic agents; Z88.0 Allergy status to penicillin; Z98.51 Tubal ligation status; Z90.49 Acquired absence of other specified parts of digestive tract; Z98.890 Other specified postprocedural states; X58.XXXA Exposure to other specified factors, initial encounter; Y93.89 Activity, other specified; Y92.89 Other specified places as the place of occurrence of the external cause; Y99.8 Other external cause status

== ENCOUNTER 2024-05-18 10:48 | Emergency (ER) | payer OTHER ==
[~2024-05-18] VITALS: Ht 175.2 cm; Wt 81.6 kg
[~2024-05-18 10:48] MED LIST changes: +CIPROFLOXACIN H10 ML OPH; +NICODERM CQ1 EAC2 TD
[2024-05-18 11:15] VITALS: BP 151/97
[2024-05-18] MEDS ORDERED: Albuterol Sulf/Ipratropium 3 ML VIAL NEB ONE (11:20)
== END 2024-05-18 14:16 | disposition home or self-care (01) ==
LOC: ED 10:48
DX: S23.41XA Sprain of ribs, initial encounter (principal); R05.9 Cough, unspecified; Z88.0 Allergy status to penicillin; Z88.1 Allergy status to other antibiotic agents; Z98.51 Tubal ligation status; Z90.49 Acquired absence of other specified parts of digestive tract; Z98.890 Other specified postprocedural states; X58.XXXA Exposure to other specified factors, initial encounter; Y93.89 Activity, other specified; Y92.009 Unspecified place in unspecified non-institutional (private) residence as the place of occurrence of the external cause; Y99.8 Other external cause status

== ENCOUNTER 2024-09-28 07:45 | Emergency (ER) | payer SELFPAY ==
[~2024-09-28] VITALS: Ht 175.2 cm; Wt 81.6 kg
[2024-09-28 07:51] VITALS: BP 137/76
[2024-09-28] MEDS ORDERED: PREDNISONE20 M1 PO (08:07)
[2024-09-28] MEDS ORDERED: NAPROSYN500 MG PO (08:07)
[2024-09-28] MEDS ORDERED: Dexamethasone Sodium Phospha 20 MG/5 ML VIAL IM ONE (08:10)
== END 2024-09-28 08:23 | disposition home or self-care (01) ==
LOC: ED 07:45
DX: L55.9 Sunburn, unspecified (principal); Z79.899 Other long term (current) drug therapy; Z88.0 Allergy status to penicillin; Z88.1 Allergy status to other antibiotic agents; Z90.49 Acquired absence of other specified parts of digestive tract; Z98.51 Tubal ligation status; Z98.890 Other specified postprocedural states

== ENCOUNTER 2025-03-21 11:38 | Emergency (ER) | payer SELFPAY ==
[~2025-03-21] VITALS: Ht 175.2 cm; Wt 86.2 kg
[2025-03-21 11:45] VITALS: BP 134/84
[2025-03-21] MEDS ORDERED: OMEPRAZOLE40 MG PO (12:28)
[2025-03-21] MEDS ORDERED: HYDROCODONE-AC1 EAC1 PO (13:58)
== END 2025-03-21 14:08 | disposition home or self-care (01) ==
LOC: ED 11:38
DX: S02.32XA Fracture of orbital floor, left side, initial encounter for closed fracture (principal); S46.912A Strain of unspecified muscle, fascia and tendon at shoulder and upper arm level, left arm, initial encounter; S63.501A Unspecified sprain of right wrist, initial encounter; S09.90XA Unspecified injury of head, initial encounter; W10.9XXA Fall (on) (from) unspecified stairs and steps, initial encounter; Y93.89 Activity, other specified; Y92.89 Other specified places as the place of occurrence of the external cause; Y99.8 Other external cause status